=== PATIENT | male | born 1985 | race Caucasian/White ===

== ENCOUNTER 2017-10-01 16:57 | Emergency (ER) | payer OTHER ==
[2017-10-01] MEDS ORDERED: Ketorolac 60 MG/2 ML SDV IM ONE (18:51)
--- NOTE | 2017-10-01 20:13 | EDM.PDOC ---
ED HPI GENERAL MEDICAL PROBLEM - General Chief Complaint: Upper Extremity Injury/Pain Stated Complaint: PAIN RT SHOULDER/HAND Time Seen by Provider: 10/01/17 18:51 Source of Information: Reports: Patient History Limitations: Reports: No Limitations - History of Present Illness INITIAL COMMENTS - FREE TEXT/NARRATIVE: HISTORY AND PHYSICAL: History of present illness: Patient is a 31-year-old male who presents to the emergency room with complaints of right shoulder and hand pain. He states approximately 3 months ago he did fracture his hand which required surgery. 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 This morning he woke up with pain to his right shoulder and hand. He denies any injury or trauma to the affected extremity. As full range of motion although causes pain when he "overuses it". Review of systems: As per history of present illness and below otherwise all systems reviewed and negative. Past medical history: As per history of present illness and as reviewed below otherwise noncontributory. Surgical history: As per history of present illness and as reviewed below otherwise noncontributory. Social history: No reported history of drug or alcohol abuse. Family history: As per history of present illness and as reviewed below otherwise noncontributory. Physical exam: HEENT: Atraumatic, normocephalic, pupils reactive, negative for conjunctival pallor or scleral icterus, mucous membranes moist, throat clear, neck supple, nontender, trachea midline. Lungs: Clear to auscultation, breath sounds equal bilaterally, chest nontender. Heart: S1S2, regular, negative for clicks, rubs, or JVD. Abdomen: Soft, nondistended, nontender. Negative for masses or hepatosplenomegaly. Negative for costovertebral tenderness. Pelvis: Stable nontender. Genitourinary: Deferred. Rectal: Deferred. Extremities: Atraumatic, moves all extremities per self, full range of motion negative for cords or calf pain. Neurovascular unremarkable. Neuro: Awake, alert, oriented. Cranial nerves II through XII unremarkable. Cerebellum unremarkable. Motor and sensory unremarkable throughout. Exam nonfocal. Diagnostics: X-ray of right shoulder and hand Therapeutics: Toradol Impression: Shoulder pain Plan: 1. X-ray of the shoulder and hand are normal. Pain may be residual from previous surgery or overuse from your occupation. 2. Rest, ice, elevate the affected extremity. He may take the Cataflam has been prescribed for you. 1 tab 3 times daily as needed. This is an anti-inflammatory so please do not take any additional NSAIDs such as ibuprofen or Aleve. Take this medication with food. If you need to you may take Tylenol as needed. A limited amount of tramadol has been given to you for nighttime use. This is a medication that will make you drowsy so do not take it while driving or needing to be functioning at work. 3. Follow-up with orthopedics if you continue to have problems. Return to the ED as needed and as discussed Definitive disposition and diagnosis as appropriate pending reevaluation and review of above. Right Shoulder Pain Score (Numeric/FACES): 8 - Related Data Allergies Allergy/AdvReac Type Severity Reaction Status Date / Time No Known Allergies Allergy Verified 10/01/17 18:09 Home Meds: Home Meds . [No Known Home Meds] 10/01/17 [History] Past Medical History HEENT History: Reports: None Cardiovascular History: Reports: None Respiratory History: Reports: None Gastrointestinal History: Reports: None Genitourinary History: Reports: None Musculoskeletal History: Reports: Other (See Below) Neurological History: Reports: None Psychiatric History: Reports: None Endocrine/Metabolic History: Reports: None Hematologic History: Reports: None Immunologic History: Reports: None Oncologic (Cancer) History: Reports: None Dermatologic History: Reports: None - Infectious Disease History Infectious Disease History: Reports: None - Past Surgical History Head Surgeries/Procedures: Reports: None Respiratory Surgical History: Reports: None Male Surgical History: Reports: None Neurological Surgical History: Reports: None Other Musculoskeletal Surgeries/Procedures:: broken right shoulder and hand Dermatological Surgical History: Reports: None Social & Family History - Tobacco Use Smoking Status *Q: Current Every Day Smoker Years of Tobacco use: 10 Packs/Tins Daily: 0.5 - Caffeine Use Caffeine Use: Reports: Coffee - Recreational Drug Use Recreational Drug Use: No Review of Systems - Review of Systems Review Of Systems: ROS reveals no pertinent complaints other than HPI. ED EXAM, GENERAL - Physical Exam Exam: See Below (See dictation) Course - Vital Signs Last Recorded V/S: Last Vital Signs Temp 99.5 F 10/01/17 18:06 Pulse 105 H 10/01/17 18:06 Resp 18 10/01/17 18:06 BP 138/78 12/13/17 18:06 Pulse Ox 98 10/01/17 18:06 - Orders/Labs/Meds Orders: Active Orders 24 hr Category Date Time Status Hand 2V Rt [CR] Stat Exams 10/01/17 18:51 Taken Shoulder Comp Rt [CR] Stat Exams 10/01/17 18:51 Taken Meds: Medications Discontinued Medications Generic Name Dose Route Start Last Admin Trade Name Irma PRN Reason Stop Dose Admin Ketorolac Tromethamine 60 mg 10/01/17 18:51 10/01/17 19:11 Toradol IM 10/01/17 18:52 60 mg ONETIME ONE Administration Departure - Departure Time of Disposition: 20:11 Disposition: Home, Self-Care 01 Clinical Impression: Shoulder pain Qualifiers: Chronicity: acute Laterality: right Qualified Code(s): M25.511 - Pain in right shoulder Hand pain Qualifiers: Laterality: right Qualified Code(s): M79.641 - Pain in right hand - Discharge Information Referrals: PCP,None [Primary Care Provider] - Additional Instructions: My general discharge The following information is given to patients seen in the emergency department who are being discharged to home. This information is to outline your options for follow-up care. We provide all patients seen in our emergency department with a follow-up referral. The need for follow-up, as well as the timing and circumstances, are variable depending upon the specifics of your emergency department visit. If you don't have a primary care physician on staff, we will provide you with a referral. We always advise you to contact your personal physician following an emergency department visit to inform them of the circumstance of the visit and for follow-up with them and/or the need for any referrals to a consulting specialist. The emergency department will also refer you to a specialist when appropriate. This referral assures that you have the opportunity for follow-up care with a specialist. All of these measure are taken in an effort to provide you with optimal care, which includes your follow-up. Under all circumstances we always encourage you to contact your private physician who remains a resource for coordinating your care. When calling for follow-up care, please make the office aware that this follow-up is from your recent emergency room visit. If for any reason you are refused follow-up, please contact the [facility] Emergency Department at and asked to speak to the emergency department charge nurse. [facility] Professional Building [address] [place] [address], [address] [place] [address] 1. X-ray of the shoulder and hand are normal. Pain may be residual from previous surgery or overuse from your occupation. 2. Rest, ice, elevate the affected extremity. He may take the Cataflam has been prescribed for you. 1 tab 3 times daily as needed. This is an anti-inflammatory so please do not take any additional NSAIDs such as ibuprofen or Aleve. Take this medication with food. If you need to you may take Tylenol as needed. A limited amount of tramadol has been given to you for nighttime use. This is a medication that will make you drowsy so do not take it while driving or needing to be functioning at work. 3. Follow-up with orthopedics if you continue to have problems. Return to the ED as needed and as discussed - My Orders Last 24 Hours: My Active Orders 10/01/17 18:51 Hand 2V Rt [CR] Stat Shoulder Comp Rt [CR] Stat - Assessment/Plan Last 24 Hours: My Active Orders 10/01/17 18:51 Hand 2V Rt [CR] Stat Shoulder Comp Rt [CR] Stat
--- NOTE | 2017-10-02 08:56 | CR ---
EXAM DATE: 10/01/17 PATIENT'S AGE: 31 Patient: ZULY JARAMILLO Facility: [place], [place] Site . Site : 1985 Study: XRay Shoulder Right [id number]/13/2017 7:43:06 PM Ordering Physician: Doctor Johnson Final Report: Indication: Pain, injury 3 years ago Technique: Three views right shoulder Comparison: None Findings: Bones: Alignment is normal. No fractures or bone lesions. Joint spaces: Unremarkable. Soft tissues: Unremarkable. Impression: Negative. Dictated by Deanna Calderon MD @ Oct 01 2017 7:57PM (Electronic Signature) Report Signed by Proxy. ANGEL
--- NOTE | 2017-10-02 08:57 | CR ---
EXAM DATE: 10/01/17 PATIENT'S AGE: 31 Patient: ZULY JARAMILLO Facility: [place], [place] Site . Site : 1985 Study: XRay Extremity Right Hand [id number]/13/2017 7:43:40 PM Ordering Physician: Doctor Johnson Final Report: Indication: Pain, injury 6 months ago Technique: Two-view right hand Comparison: None Findings: Bones: Alignment is normal. No acute fractures or bone lesions. Remote appearing deformity of the right 5th metacarpal. Joint spaces: Unremarkable. Soft tissues: Unremarkable. Impression: No acute abnormality. Remote appearing deformity of the right 5th metacarpal. Dictated by Deanna Calderon MD @ Oct 01 2017 7:58PM (Electronic Signature) Report Signed by Proxy. ANGEL
== END 2017-10-01 20:36 | disposition home or self-care (01) ==
LOC: MW.ED 16:57
DX: M25.511 Pain in right shoulder (principal); M79.641 Pain in right hand; F17.210 Nicotine dependence, cigarettes, uncomplicated
CPT/HCPCS: 73030; 73120; 96372; 99283; J1885

== ENCOUNTER 2017-10-03 12:30 | Emergency (ER) | payer OTHER ==
--- NOTE | 2017-10-03 13:05 | EDM.PDOC ---
ED HPI GENERAL MEDICAL PROBLEM - General Chief Complaint: Upper Extremity Injury/Pain Stated Complaint: SMASHED RIGHT HAND Time Seen by Provider: 10/03/17 12:36 Source of Information: Reports: Patient History Limitations: Reports: No Limitations - History of Present Illness INITIAL COMMENTS - FREE TEXT/NARRATIVE: HISTORY AND PHYSICAL: History of present illness: Patient is a 31-year-old male who presents to the emergency room with complaints of right third digit pain after crush injury. Patient reports he was working with [employer] and a wall had crushed the distal tip of his finger. Noted bruising and swelling to the distal tip of the finger. No open skin or bleeding noted. This was updated within the last year. Denies any other extremity or digit involvement. Review of systems: As per history of present illness and below otherwise all systems reviewed and negative. Past medical history: As per history of present illness and as reviewed below otherwise noncontributory. Surgical history: As per history of present illness and as reviewed below otherwise noncontributory. Social history: No reported history of drug or alcohol abuse. Family history: As per history of present illness and as reviewed below otherwise noncontributory. Physical exam: Gen.: Well-developed and well-nourished 31-year-old male. Appears nontoxic and in no acute distress. Alert and oriented. HEENT: Atraumatic, normocephalic, pupils reactive, negative for conjunctival pallor or scleral icterus, mucous membranes moist, throat clear, neck supple, nontender, trachea midline. Has a lower lip piercing. Lungs: Clear to auscultation, breath sounds equal bilaterally, chest nontender. Heart: S1S2, regular rate and rhythm. Abdomen: Soft, nondistended, nontender. Negative for masses or hepatosplenomegaly. Negative for costovertebral tenderness. Pelvis: Stable nontender. Genitourinary: Deferred. Rectal: Deferred. Extremities: Bruising and mild swelling to the distal tip of the right third digit. Nailbed is intact. There is no collection of blood under the nail bed. The bruising and swelling is to the pad of the finger. Moves all extremities per self. Good flexion and extension of the digits on the right hand. Strong radial pulses. Capillary refill less than 3 seconds. negative for cords or calf pain. Neurovascular unremarkable. Neuro: Awake, alert, oriented. Cranial nerves II through XII unremarkable. Cerebellum unremarkable. Motor and sensory unremarkable throughout. Exam nonfocal. Patient was seen in the ER and 10/01/2017 with complaints of right hand and shoulder pain. An x-ray was done at that time. He is given a prescription for an anti-inflammatory and tramadol. Today's x-ray shows no acute fractures or bony lesions. There is some mild soft tissue swelling present. patient states he still has the anti-inflammatorhe was prescribed on the . We'll give the patient shot of Toradol and a cage splint to help protect the finger while at work. Started him to follow-up with his primary caregiver he continues to have any problems. He voices understanding and is agreeable to plan of care. He denies any further questions at this time. Diagnostics: X-ray Therapeutics: Cage splint Toradol Impression: Crush injury Contusion Plan: 1. You may use Tylenol and/or ibuprofen as needed for pain management. A cage splint has been given to tell protect the distal portion of your finger. Rest, ice, elevate the extremity. 2. Please follow-up with your primary caregiver in the next 1-2 days. Return to the ED as needed and as discussed. Definitive disposition and diagnosis as appropriate pending reevaluation and review of above. Onset: Today Duration: Hour(s): Location: Reports: Upper Extremity, Right Right 3-Middle finger Pain Score (Numeric/FACES): 6 - Related Data Allergies Allergy/AdvReac Type Severity Reaction Status Date / Time No Known Allergies Allergy Verified 10/01/17 18:09 Home Meds: Home Meds . [No Known Home Meds] 10/01/17 [History] Past Medical History HEENT History: Reports: None Cardiovascular History: Reports: None Respiratory History: Reports: None Gastrointestinal History: Reports: None Genitourinary History: Reports: None Musculoskeletal History: Reports: Other (See Below) Neurological History: Reports: None Psychiatric History: Reports: None Endocrine/Metabolic History: Reports: None Hematologic History: Reports: None Immunologic History: Reports: None Oncologic (Cancer) History: Reports: None Dermatologic History: Reports: None - Infectious Disease History Infectious Disease History: Reports: None - Past Surgical History Head Surgeries/Procedures: Reports: None Respiratory Surgical History: Reports: None Male Surgical History: Reports: None Neurological Surgical History: Reports: None Other Musculoskeletal Surgeries/Procedures:: broken right shoulder and hand Dermatological Surgical History: Reports: None Social & Family History - Family History Family Medical History: Noncontributory - Tobacco Use Smoking Status *Q: Current Every Day Smoker Years of Tobacco use: 10 Packs/Tins Daily: 0.5 Used Tobacco, but Quit: No Second Hand Smoke Exposure: Yes - Caffeine Use Caffeine Use: Reports: Coffee, Soda Caffeine Use Comment: 2 cups per day - Recreational Drug Use Recreational Drug Use: No Review of Systems - Review of Systems Review Of Systems: ROS reveals no pertinent complaints other than HPI. ED EXAM, GENERAL - Physical Exam Exam: See Below (See dictation) Course - Vital Signs Last Recorded V/S: Last Vital Signs Temp 98.6 F 10/03/17 12:44 Pulse 104 H 10/03/17 12:44 Resp 16 10/03/17 12:44 BP 136/94 H 10/03/17 12:44 Pulse Ox 96 10/03/17 12:44 - Orders/Labs/Meds Orders: Active Orders 24 hr Category Date Time Status Fingers Third Digit Rt F7 [CR] Stat Exams 10/03/17 13:01 Taken Ketorolac [Toradol] Med 10/03/17 13:37 Once 60 mg IM ONETIME ONE DME for Discharge [COMM] Stat Oth 10/03/17 13:38 Ordered Departure - Departure Time of Disposition: 13:39 Disposition: Home, Self-Care 01 Clinical Impression: Crush injury Contusion Qualifiers: Encounter type: initial encounter Contusion area: finger Finger: middle finger Damage to nail status: without damage Laterality: right Qualified Code(s): S60.031A - Contusion of right middle finger without damage to nail, initial encounter - Discharge Information Referrals: PCP,None [Primary Care Provider] - Forms: ED Department Discharge Additional Instructions: My general discharge The following information is given to patients seen in the emergency department who are being discharged to home. This information is to outline your options for follow-up care. We provide all patients seen in our emergency department with a follow-up referral. The need for follow-up, as well as the timing and circumstances, are variable depending upon the specifics of your emergency department visit. If you don't have a primary care physician on staff, we will provide you with a referral. We always advise you to contact your personal physician following an emergency department visit to inform them of the circumstance of the visit and for follow-up with them and/or the need for any referrals to a consulting specialist. The emergency department will also refer you to a specialist when appropriate. This referral assures that you have the opportunity for follow-up care with a specialist. All of these measure are taken in an effort to provide you with optimal care, which includes your follow-up. Under all circumstances we always encourage you to contact your private physician who remains a resource for coordinating your care. When calling for follow-up care, please make the office aware that this follow-up is from your recent emergency room visit. If for any reason you are refused follow-up, please contact the [facility] Emergency Department at and asked to speak to the emergency department charge nurse. [facility] [address] [place] [id number] 1. You may use Tylenol and/or ibuprofen as needed for pain management. A cage splint has been given to tell protect the distal portion of your finger. Rest, ice, elevate the extremity. 2. Please follow-up with your primary caregiver in the next 1-2 days. Return to the ED as needed and as discussed. - My Orders Last 24 Hours: My Active Orders 10/03/17 13:01 Fingers Third Digit Rt F7 [CR] Stat 10/03/17 13:37 Ketorolac [Toradol] 60 mg IM ONETIME ONE 10/03/17 13:38 DME for Discharge [COMM] Stat - Assessment/Plan Last 24 Hours: My Active Orders 10/03/17 13:01 Fingers Third Digit Rt F7 [CR] Stat 10/03/17 13:37 Ketorolac [Toradol] 60 mg IM ONETIME ONE 10/03/17 13:38 DME for Discharge [COMM] Stat
[2017-10-03] MEDS ORDERED: Ketorolac 60 MG/2 ML SDV IM ONE (13:37)
--- NOTE | 2017-10-03 14:01 | CR ---
EXAM DATE: 10/03/17 PATIENT'S AGE: 31 Patient: ZULY JARAMILLO Facility: [place], [place] Site . Site : 1985 Study: XRay Extremity Right [id number]/15/2017 1:17:56 PM Ordering Physician: Doctor Johnson Final Report: Indication: Crush injury. Technique: Right 3rd finger 3 views Comparison: Right hand October 01, 2017. Findings/Impression: Bones: Alignment is normal. No fractures or bone lesions. Joint spaces: Unremarkable. Soft tissues: Mild soft tissue swelling is present. Dictated by Vinny Vera MD @ Oct 03 2017 1:33PM (Electronic Signature) Report Signed by Proxy. ANGEL
== END 2017-10-03 14:02 | disposition home or self-care (01) ==
LOC: MW.ED 12:30
DX: S67.192A Crushing injury of right middle finger, initial encounter (principal); S60.031A Contusion of right middle finger without damage to nail, initial encounter; F17.210 Nicotine dependence, cigarettes, uncomplicated; W23.0XXA Caught, crushed, jammed, or pinched between moving objects, initial encounter; Y93.89 Activity, other specified; Y99.0 Civilian activity done for income or pay
CPT/HCPCS: 73140; 96372; 99283; J1885; 99284

== ENCOUNTER 2017-10-08 05:28 | Emergency (ER) | payer OTHER ==
--- NOTE | 2017-10-08 05:53 | EDM.PDOC ---
ED HPI GENERAL MEDICAL PROBLEM - General Chief Complaint: Upper Extremity Injury/Pain Stated Complaint: RIGHT SHOULDER PAIN Time Seen by Provider: 10/08/17 05:49 Source of Information: Reports: Patient - History of Present Illness INITIAL COMMENTS - FREE TEXT/NARRATIVE: HISTORY AND PHYSICAL: History of present illness: [Patient presents with right shoulder pain is been prescribed Cataflam instead Cataflam as directed states he is unable to sleep and he needs to work in a few hours reproduce pain with palpation of right paraspinous muscles as well as infraspinatus. 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 Past medical history: As per history of present illness and as reviewed below otherwise noncontributory. Surgical history: As per history of present illness and as reviewed below otherwise noncontributory. Social history: No reported history of drug or alcohol abuse. Family history: As per history of present illness and as reviewed below otherwise noncontributory. Physical exam: HEENT: Atraumatic, normocephalic, pupils reactive, negative for conjunctival pallor or scleral icterus, mucous membranes moist, throat clear, neck supple, nontender, trachea midline. Lungs: Clear to auscultation, breath sounds equal bilaterally, chest nontender. Heart: S1S2, regular, negative for clicks, rubs, or JVD. Abdomen: Soft, nondistended, nontender. Negative for masses or hepatosplenomegaly. Negative for costovertebral tenderness. Pelvis: Stable nontender. Genitourinary: Deferred. Rectal: Deferred. Extremities: Atraumatic, negative for cords or calf pain. Neurovascular unremarkable. Neuro: Awake, alert, oriented. Cranial nerves II through XII unremarkable. Cerebellum unremarkable. Motor and sensory unremarkable throughout. Exam nonfocal. 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 right shoulder Pain Score (Numeric/FACES): 6 - Related Data Allergies Allergy/AdvReac Type Severity Reaction Status Date / Time No Known Allergies Allergy Verified 10/08/17 05:38 Home Meds: Home Meds . [No Known Home Meds] 10/01/17 [History] Past Medical History HEENT History: Reports: None Cardiovascular History: Reports: None Respiratory History: Reports: None Gastrointestinal History: Reports: None Genitourinary History: Reports: None Musculoskeletal History: Reports: Other (See Below) Other Musculoskeletal History: shoulder problem Neurological History: Reports: None Psychiatric History: Reports: None Endocrine/Metabolic History: Reports: None Hematologic History: Reports: None Immunologic History: Reports: None Oncologic (Cancer) History: Reports: None Dermatologic History: Reports: None - Infectious Disease History Infectious Disease History: Reports: None - Past Surgical History Head Surgeries/Procedures: Reports: None Respiratory Surgical History: Reports: None Male Surgical History: Reports: None Neurological Surgical History: Reports: None Other Musculoskeletal Surgeries/Procedures:: broken right shoulder and hand Dermatological Surgical History: Reports: None Social & Family History - Family History Family Medical History: Noncontributory - Tobacco Use Smoking Status *Q: Current Every Day Smoker Years of Tobacco use: 10 Packs/Tins Daily: 0.5 Used Tobacco, but Quit: No Second Hand Smoke Exposure: Yes - Caffeine Use Caffeine Use: Reports: Coffee Caffeine Use Comment: 2 cups per day - Recreational Drug Use Recreational Drug Use: No Review of Systems - Review of Systems Review Of Systems: ROS reveals no pertinent complaints other than HPI. ED EXAM, GENERAL - Physical Exam Exam: See Below Course - Vital Signs Last Recorded V/S: Last Vital Signs Temp 99.1 F 10/08/17 05:39 Pulse 102 H 10/08/17 05:39 Resp 18 10/08/17 05:39 BP 133/74 10/08/17 05:39 Pulse Ox 98 10/08/17 05:39 Departure - Departure Time of Disposition: 05:51 Disposition: Home, Self-Care 01 Condition: Good Clinical Impression: Muscle spasm - Discharge Information Referrals: PCP,None [Primary Care Provider] - Additional Instructions: Medication as prescribed Return if symptoms persist or worsen Follow-up with primary care in 2 weeks sooner as needed You may also consider orthopedic follow-up as needed, numbers for both primary care in orthopedic specialty provided below [facility] - Primary Care [address], [place] [address] [facility] [address] [place] [address], [address] [place] [address] my orthopedic The following information is given to patients seen in the emergency department who are being discharged to home. This information is to outline your options for follow-up care. We provide all patients seen in our emergency department with a follow-up referral. The need for follow-up, as well as the timing and circumstances, are variable depending upon the specifics of your emergency department visit. If you don't have a primary care physician on staff, we will provide you with a referral. We always advise you to contact your personal physician following an emergency department visit to inform them of the circumstance of the visit and for follow-up with them and/or the need for any referrals to a consulting specialist. The emergency department will also refer you to a specialist when appropriate. This referral assures that you have the opportunity for follow-up care with a specialist. All of these measure are taken in an effort to provide you with optimal care, which includes your follow-up. Under all circumstances we always encourage you to contact your private physician who remains a resource for coordinating your care. When calling for follow-up care, please make the office aware that this follow-up is from your recent emergency room visit. If for any reason you are refused follow-up, please contact the [facility] emergency department at and asked to speak to the emergency department charge nurse.
== END 2017-10-08 06:00 | disposition home or self-care (01) ==
LOC: MW.ED 05:28
DX: M62.838 Other muscle spasm (principal); F17.210 Nicotine dependence, cigarettes, uncomplicated
CPT/HCPCS: 99283